=== PATIENT | female | born 1990 | race African-American/Black ===

== ENCOUNTER 2017-02-21 18:59 | Emergency (ER) | payer OTHER ==
[2017-02-21 19:12] VITALS: BMI 23.4
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
[2017-02-21] MEDS ORDERED: DEXTROSE 5%-LACTATED RINGERS 500 ML IV SCH ×2 (20:00→21:00)
[2017-02-21 21:09] VITALS: BP 124/69; PULSE 89; TEMP 98
== END 2017-02-21 22:15 | disposition home or self-care (01) ==
LOC: JER 18:59
PROC: 3E0337Z Introduction of Electrolytic and Water Balance Substance into Peripheral Vein, Percutaneous Approach (ICD-10-PCS; principal; 2017-02-21)
DX: Z04.1 Encounter for examination and observation following transport accident (principal); O26.892 Other specified pregnancy related conditions, second trimester; Z3A.26 26 weeks gestation of pregnancy
CPT/HCPCS: 76816-TC; 76817-TC; 99282-25